=== PATIENT | male | born 1945 | race Two or more races ===

== ENCOUNTER 2019-11-05 16:05 | Emergency (ER) | payer OTHER ==
[~2019-11-05] VITALS: Ht 167.6 cm; Wt 83.5 kg
[2019-11-05] MEDS ORDERED: NEOMYCIN-BACITRACIN-POLYM 15GM TOP OINT TOP SCH (20:30)
[2019-11-05 20:33] VITALS: BP 146/75
== END 2019-11-05 20:48 | disposition home or self-care (01) ==
LOC: ER 16:05
DX: S51.812A Laceration without foreign body of left forearm, initial encounter (principal); E11.65 Type 2 diabetes mellitus with hyperglycemia; Z76.0 Encounter for issue of repeat prescription; X58.XXXA Exposure to other specified factors, initial encounter; Y93.89 Activity, other specified; Y92.89 Other specified places as the place of occurrence of the external cause; Y99.8 Other external cause status
CPT/HCPCS: 82962

== ENCOUNTER 2020-02-27 15:08 | Emergency (ER) | payer OTHER ==
[~2020-02-27] VITALS: Ht 167.6 cm; Wt 83.0 kg
[2020-02-27] MEDS ORDERED: SODIUM CHLORIDE 0.9% 1,000 ML IV ONE (15:45)
[2020-02-27 16:35] LABS: Basophils # (auto) 0 10 ^3/uL (0-0.2); Basophils % (auto) 0.4 % (0.0-2.0); Eosinophils # (auto) 0.1 10 ^3/uL (0-0.8); Eosinophils % (auto) 0.7 % (0.0-7.0); Hematocrit 44.1 % (41.0-53.0); Hemoglobin 15.1 g/dL (13.5-17.5); Lymphocytes # (auto) 0.9 10 ^3/uL (0.4-5.4); Lymphocytes % (auto) 8.4 % (10.0-50.0); Mean Corpuscular Hemoglobin 31.9 pg (28.0-32.0); Mean Corpuscular Hgb Conc. 34.3 g/dL (32.0-36.0); Monocytes # (auto) 0.8 10 ^3/uL (0-1.3); Monocytes % (auto) 7.9 % (0.0-12.0); Neutrophils # (auto) 8.7 10 ^3/uL (1.6-8.6); Neutrophils % (auto) 82.6 % (37.0-80.0); Platelet Count (auto) 143 10^3/uL (140-450); Red Blood Cells 4.75 10^6/uL (4.5-5.90); Red Cell Distribution Width 12.7 % (11.8-14.3); White Blood Cell 10.6 10^3/uL (4.4-10.8)
[2020-02-27 16:53] LABS: Albumin 3.5 g/dL (3.4-5.0); Anion Gap 7 (5-15); Blood Urea Nitrogen 21 mg/dL (7-18); Carbon Dioxide 27 mmol/L (21-32); Chloride 101 mmol/L (98-107); Glucose 316 mg/dL (74-106); Magnesium 2.1 mg/dL (1.6-2.6); Potassium 5.1 mmol/L (3.5-5.1); Sodium 135 mmol/L (136-145)
[2020-02-27 16:58] LABS: Alanine Aminotransferase 23 U/L (16-61); Alkaline Phosphatase 72 U/L (45-117); Aspartate Aminotransferase 13 U/L (15-37); BUN/Creatinine Ratio 12.2; Bilirubin, Total 0.8 mg/dL (0.2-1.0); GFR African American 50 mL/min; GFR Non-African American 42 mL/min; Total Protein 7.7 g/dL (6.4-8.2)
[2020-02-27 18:14] LABS: Urine Bacteria NONE SEEN /hpf (None Seen); Urine Blood Negative /uL (Negative); Urine Hyaline Cast MANY /lpf (0 - 2); Urine Mucus FEW (None Seen); Urine Specific Gravity 1.013 (1.001-1.035); Urine WBC 1 /hpf (0 - 3)
[2020-02-27 19:07] VITALS: BP 151/78
== END 2020-02-27 19:04 | disposition home or self-care (01) ==
LOC: ER 15:08 → EDBD 15:08 → ER 19:04
DX: T67.5XXA Heat exhaustion, unspecified, initial encounter (principal); E86.0 Dehydration; E11.9 Type 2 diabetes mellitus without complications; I10 Essential (primary) hypertension; X58.XXXA Exposure to other specified factors, initial encounter; Y93.89 Activity, other specified; Y92.89 Other specified places as the place of occurrence of the external cause; Y99.8 Other external cause status
CPT/HCPCS: 36415; 71045; 80053; 81001; 83735; 83880; 84484; 85025; 93005; 96360; 99285; J7030

== ENCOUNTER 2020-05-06 15:00 | Inpatient (IN) | payer OTHER ==
[~2020-05-06] VITALS: Ht 162.6 cm; Wt 71.1 kg
[2020-05-06] MEDS ORDERED: SODIUM CHLORIDE 0.9% 1,000 ML IV ONE (15:45)
[2020-05-06] MEDS ORDERED: InsuLIN REG 1unit/0.01ml Soln (100units/ml) IV ONE (15:45)
[2020-05-06 15:57] LABS: Basophils # (auto) 0 10 ^3/uL (0-0.2); Basophils % (auto) 0.3 % (0.0-2.0); Eosinophils # (auto) 0 10 ^3/uL (0-0.8); Eosinophils % (auto) 0.1 % (0.0-7.0); Hematocrit 46.6 % (41.0-53.0); Hemoglobin 16.5 g/dL (13.5-17.5); Lymphocytes # (auto) 0.7 10 ^3/uL (0.4-5.4); Lymphocytes % (auto) 8.5 % (10.0-50.0); Mean Corpuscular Hemoglobin 31.2 pg (28.0-32.0); Mean Corpuscular Hgb Conc. 35.4 g/dL (32.0-36.0); Mean Corpuscular Volume 88.4 fL (80.0-100.0); Monocytes # (auto) 0.5 10 ^3/uL (0-1.3); Monocytes % (auto) 6.8 % (0.0-12.0); Neutrophils # (auto) 6.5 10 ^3/uL (1.6-8.6); Neutrophils % (auto) 84.3 % (37.0-80.0); Nucleated Red Blood Cells % 0.1 %; Platelet Count (auto) 173 10^3/uL (140-450); Red Blood Cells 5.27 10^6/uL (4.5-5.90); Red Cell Distribution Width 12.3 % (11.8-14.3); White Blood Cell 7.7 10^3/uL (4.4-10.8)
[2020-05-06 16:00] LABS: INR 1.03 (0.9-1.15); Partial Thromboplastin Time 31.6 sec (23.0-31.2)
[2020-05-06 16:02] LABS: Albumin 2.7 g/dL (3.4-5.0); Anion Gap 11 (5-15); Blood Urea Nitrogen 22 mg/dL (7-18); Calcium 8.7 mg/dL (8.5-10.1); Carbon Dioxide 20 mmol/L (21-32); Chloride 101 mmol/L (98-107); Glucose 263 mg/dL (74-106); Potassium 4.3 mmol/L (3.5-5.1); Sodium 132 mmol/L (136-145)
[2020-05-06 16:07] LABS: Alanine Aminotransferase 25 U/L (16-61); Alkaline Phosphatase 115 U/L (45-117); Aspartate Aminotransferase 43 U/L (15-37); BUN/Creatinine Ratio 17.7; Bilirubin, Total 0.7 mg/dL (0.2-1.0); GFR African American 73 mL/min; GFR Non-African American 61 mL/min; Total Protein 8.1 g/dL (6.4-8.2)
[2020-05-06 16:31] LABS: Urine Bacteria NONE SEEN /hpf (None Seen); Urine Blood Negative /uL (Negative); Urine Specific Gravity 1.009 (1.001-1.035); Urine WBC 2 /hpf (0 - 3)
[2020-05-06] MEDS ORDERED: NITROGLYCERIN 0.4 MG SL TAB SL PRN (18:45)
[2020-05-06] MEDS ORDERED: MORPHINE SULF INJ 2 MG/ML SYRINGE 1ML IV PRN (18:45)
[2020-05-06] MEDS ORDERED: REMDESIVIR PER PHARMACY 0 ML IV SCH (19:30)
[2020-05-06] MEDS ORDERED: diphenhdrAMINE HCL 50 MG/1 ML VL IV PRN (19:30)
[2020-05-06] MEDS ORDERED: traMADol HCL 50 MG TAB PO PRN (19:45)
[2020-05-06] MEDS ORDERED: DEXTROSE (50%) 50ML SYRG IV PRN (19:45)
[2020-05-06] MEDS ORDERED: ONDANSETRON HCL 4 MG/2 ML VIAL IV PRN (19:45)
[2020-05-06] MEDS ORDERED: ACETAMINOPHEN 500 MG TAB PO PRN (19:45)
[2020-05-06] MEDS ORDERED: REMDESIVIR 200 MG in NS 210ml LOADING DOSE ADULT IV ONE ×2 (20:00→22:00)
[2020-05-06] MEDS: ACCU-CHEK COMFORT CURVE STRIP VI SCH (22:00)
[2020-05-06] MEDS: BUDESONIDE (INHALATION) 180 MCG IH IN SCH (22:00)
[2020-05-06] MEDS ORDERED: FAMOTIDINE (10MG/ML) 2ML VL IV SCH (22:00)
[2020-05-06 23:00] VITALS: BP 119/70
[2020-05-06] MEDS: InsuLIN REG 1unit/0.01ml Soln (100units/ml) SC SCH (23:27)
[2020-05-06] MEDS: ENOXAPARIN SOD 40 MG/0.4 ML SYRINGE SC SCH (23:33)
[2020-05-07 00:46] VITALS: BP 147/70
[2020-05-07] MEDS: InsuLIN REG 1unit/0.01ml Soln (100units/ml) SC SCH ×4 (06:34→22:37)
[2020-05-07] MEDS: ACCU-CHEK COMFORT CURVE STRIP VI SCH ×4 (06:34→22:00)
[2020-05-07 07:07] LABS: Basophils # (auto) 0 10 ^3/uL (0-0.2); Basophils % (auto) 0.2 % (0.0-2.0); Eosinophils # (auto) 0 10 ^3/uL (0-0.8); Eosinophils % (auto) 0.1 % (0.0-7.0); Hematocrit 42.3 % (41.0-53.0); Hemoglobin 15.3 g/dL (13.5-17.5); Lymphocytes # (auto) 0.7 10 ^3/uL (0.4-5.4); Lymphocytes % (auto) 7.6 % (10.0-50.0); Mean Corpuscular Hemoglobin 31.4 pg (28.0-32.0); Mean Corpuscular Hgb Conc. 36.2 g/dL (32.0-36.0); Mean Corpuscular Volume 86.9 fL (80.0-100.0); Monocytes # (auto) 0.7 10 ^3/uL (0-1.3); Monocytes % (auto) 7.4 % (0.0-12.0); Neutrophils # (auto) 7.7 10 ^3/uL (1.6-8.6); Neutrophils % (auto) 84.7 % (37.0-80.0); Nucleated Red Blood Cells % 0.2 %; Platelet Count (auto) 187 10^3/uL (140-450); Red Blood Cells 4.87 10^6/uL (4.5-5.90); Red Cell Distribution Width 12.6 % (11.8-14.3)
[2020-05-07 07:28] LABS: Albumin 2.5 g/dL (3.4-5.0); Calcium 8.3 mg/dL (8.5-10.1); Potassium 4.3 mmol/L (3.5-5.1)
[2020-05-07 07:33] LABS: BUN/Creatinine Ratio 17.4; Bilirubin, Total 0.6 mg/dL (0.2-1.0); Total Protein 7.6 g/dL (6.4-8.2)
[2020-05-07 08:00] VITALS: BP 152/82
[2020-05-07] MEDS: BUDESONIDE (INHALATION) 180 MCG IH IN SCH ×2 (10:00→20:30)
[2020-05-07] MEDS ORDERED: FAMOTIDINE (10MG/ML) 2ML VL IV SCH (10:00)
[2020-05-07] MEDS: levoFLOXacin 500MG 100 ML IV SCH (11:00)
[2020-05-07] MEDS: ZINC SULFATE 220mg CAP or TAB PO SCH (11:00)
[2020-05-07] MEDS: ENOXAPARIN SOD 40 MG/0.4 ML SYRINGE SC SCH ×2 (11:00→22:47)
[2020-05-07] MEDS: CHOLECALCIFEROL (VITD3) 2,000 UNIT CAP/TAB PO SCH (11:00)
[2020-05-07] MEDS: DexAMETHasone SOD PHOS 10MG/1ML VIAL INJ IV SCH (11:00)
[2020-05-07] MEDS: ASCORBIC ACID 1,000 MG TAB PO SCH (11:00)
[2020-05-07 13:00] VITALS: BP 133/76
[2020-05-07] MEDS: REMDESIVIR 100mg 100 MG in SODIUM CHL 0.9% 230 ML IV SCH (15:30)
[2020-05-07 16:00] VITALS: BP 114/78
[2020-05-07] MEDS: FAMOTIDINE (10MG/ML) 2ML VL IV SCH (22:47)
[2020-05-08] VITALS: BP 129/67
[2020-05-08] MEDS: InsuLIN REG 1unit/0.01ml Soln (100units/ml) SC SCH ×4 (06:29→22:43)
[2020-05-08] MEDS: ACCU-CHEK COMFORT CURVE STRIP VI SCH ×4 (06:30→22:24)
[2020-05-08 08:00] VITALS: BP 122/67
[2020-05-08] MEDS: ENOXAPARIN SOD 40 MG/0.4 ML SYRINGE SC SCH ×2 (10:00→22:24)
[2020-05-08] MEDS: ALBUTEROL SULF HFA 90MCG INH 200DOSE IN PRN ×2 (10:27→21:07)
[2020-05-08] MEDS: BUDESONIDE (INHALATION) 180 MCG IH IN SCH ×2 (10:27→19:17)
[2020-05-08] MEDS: ASCORBIC ACID 1,000 MG TAB PO SCH (11:16)
[2020-05-08] MEDS: FAMOTIDINE (10MG/ML) 2ML VL IV SCH ×2 (11:16→22:24)
[2020-05-08] MEDS: DexAMETHasone SOD PHOS 10MG/1ML VIAL INJ IV SCH (11:16)
[2020-05-08] MEDS: ZINC SULFATE 220mg CAP or TAB PO SCH (11:16)
[2020-05-08] MEDS: levoFLOXacin 500MG 100 ML IV SCH (11:16)
[2020-05-08] MEDS: CHOLECALCIFEROL (VITD3) 2,000 UNIT CAP/TAB PO SCH (11:16)
[2020-05-08] MEDS: REMDESIVIR 100mg 100 MG in SODIUM CHL 0.9% 230 ML IV SCH (15:45)
[2020-05-08 16:00] VITALS: BP 123/62
[2020-05-08 16:07] LABS: Potassium 4.6 mmol/L (3.5-5.1)
[2020-05-08 16:15] LABS: Albumin 2.3 g/dL (3.4-5.0); BUN/Creatinine Ratio 28.7; Bilirubin, Total 0.4 mg/dL (0.2-1.0); Calcium 8.1 mg/dL (8.5-10.1)
[2020-05-09] VITALS: BP 125/70
[2020-05-09] MEDS: ACCU-CHEK COMFORT CURVE STRIP VI SCH ×4 (06:44→22:00)
[2020-05-09] MEDS: InsuLIN REG 1unit/0.01ml Soln (100units/ml) SC SCH ×4 (06:44→22:00)
[2020-05-09] MEDS: BUDESONIDE (INHALATION) 180 MCG IH IN SCH ×2 (07:15→19:00)
[2020-05-09 08:00] VITALS: BP_SYST 114; BP_SYST 138; BP_DIAS 62; BP_DIAS 63
[2020-05-09] MEDS: ASCORBIC ACID 1,000 MG TAB PO SCH (10:30)
[2020-05-09] MEDS: ENOXAPARIN SOD 40 MG/0.4 ML SYRINGE SC SCH ×2 (10:30→22:01)
[2020-05-09] MEDS: levoFLOXacin 500MG 100 ML IV SCH (10:30)
[2020-05-09] MEDS: DexAMETHasone SOD PHOS 10MG/1ML VIAL INJ IV SCH (10:30)
[2020-05-09] MEDS: CHOLECALCIFEROL (VITD3) 2,000 UNIT CAP/TAB PO SCH (10:30)
[2020-05-09] MEDS: FAMOTIDINE (10MG/ML) 2ML VL IV SCH ×2 (10:30→22:00)
[2020-05-09] MEDS: ZINC SULFATE 220mg CAP or TAB PO SCH (10:30)
[2020-05-09 12:22] LABS: Anion Gap 7 (5-15); Carbon Dioxide 22 mmol/L (21-32); Chloride 106 mmol/L (98-107); Potassium 4.2 mmol/L (3.5-5.1); Sodium 135 mmol/L (136-145)
[2020-05-09 12:23] LABS: Alanine Aminotransferase 33 U/L (16-61); Albumin 2.4 g/dL (3.4-5.0); Alkaline Phosphatase 160 U/L (45-117); Aspartate Aminotransferase 54 U/L (15-37); BUN/Creatinine Ratio 32.6; Bilirubin, Total 0.5 mg/dL (0.2-1.0); Blood Urea Nitrogen 28 mg/dL (7-18); Calcium 8.3 mg/dL (8.5-10.1); GFR African American 112 mL/min; GFR Non-African American 92 mL/min; Glucose 175 mg/dL (74-106); Total Protein 7.3 g/dL (6.4-8.2)
[2020-05-09] MEDS: HALOPERIDOL LACTATE 5 MG/ML INJ VIAL IM PRN (15:45)
[2020-05-09] MEDS: REMDESIVIR 100mg 100 MG in SODIUM CHL 0.9% 230 ML IV SCH (15:45)
[2020-05-09 16:00] VITALS: BP 138/62
[2020-05-09] MEDS: ALBUTEROL SULF HFA 90MCG INH 200DOSE IN PRN (19:00)
[2020-05-10] VITALS: BP 158/79
[2020-05-10 06:38] LABS: Albumin 2.6 g/dL (3.4-5.0); Bilirubin, Total 0.6 mg/dL (0.2-1.0); Calcium 8.4 mg/dL (8.5-10.1); Total Protein 7.2 g/dL (6.4-8.2)
[2020-05-10] MEDS: ACCU-CHEK COMFORT CURVE STRIP VI SCH ×4 (06:52→22:03)
[2020-05-10] MEDS: InsuLIN REG 1unit/0.01ml Soln (100units/ml) SC SCH ×4 (06:52→22:03)
[2020-05-10] MEDS: BUDESONIDE (INHALATION) 180 MCG IH IN SCH ×3 (07:20→22:00)
[2020-05-10 08:00] VITALS: BP 138/80
[2020-05-10] MEDS: ZINC SULFATE 220mg CAP or TAB PO SCH (10:00)
[2020-05-10] MEDS: CHOLECALCIFEROL (VITD3) 2,000 UNIT CAP/TAB PO SCH (10:00)
[2020-05-10] MEDS: ASCORBIC ACID 1,000 MG TAB PO SCH (10:00)
[2020-05-10] MEDS: FAMOTIDINE (10MG/ML) 2ML VL IV SCH ×2 (10:53→22:03)
[2020-05-10] MEDS: levoFLOXacin 500MG 100 ML IV SCH (10:54)
[2020-05-10] MEDS: ENOXAPARIN SOD 40 MG/0.4 ML SYRINGE SC SCH ×2 (10:54→22:03)
[2020-05-10] MEDS: DexAMETHasone SOD PHOS 10MG/1ML VIAL INJ IV SCH (10:54)
[2020-05-10] MEDS: REMDESIVIR 100mg 100 MG in SODIUM CHL 0.9% 230 ML IV SCH (15:15)
[2020-05-10 16:00] VITALS: BP 136/85
[2020-05-10] MEDS: ALBUTEROL SULF HFA 90MCG INH 200DOSE IN PRN (19:07)
[2020-05-11] VITALS (9 sets, daily range): BP systolic 129–159; BP diastolic 67–102
[2020-05-11] MEDS: HALOPERIDOL LACTATE 5 MG/ML INJ VIAL IM PRN (00:05)
[2020-05-11] MEDS: TEMAZEPAM 15 MG CAP PO PRN ×2 (02:14→22:41)
[2020-05-11] MEDS: LORazepam 2MG/ML-1ML VIAL IV PRN ×4 (04:05→20:19)
[2020-05-11] MEDS: MORPHINE SULF INJ 2 MG/ML SYRINGE 1ML IV PRN ×2 (05:41→15:56)
[2020-05-11] MEDS: InsuLIN REG 1unit/0.01ml Soln (100units/ml) SC SCH ×4 (06:35→20:18)
[2020-05-11] MEDS: ACCU-CHEK COMFORT CURVE STRIP VI SCH ×4 (06:35→20:19)
[2020-05-11] MEDS: ZINC SULFATE 220mg CAP or TAB PO SCH (10:00)
[2020-05-11] MEDS: BUDESONIDE (INHALATION) 180 MCG IH IN SCH ×2 (10:00→19:21)
[2020-05-11] MEDS: CHOLECALCIFEROL (VITD3) 2,000 UNIT CAP/TAB PO SCH (10:00)
[2020-05-11] MEDS: ASCORBIC ACID 1,000 MG TAB PO SCH (10:00)
[2020-05-11] MEDS: FAMOTIDINE (10MG/ML) 2ML VL IV SCH ×2 (10:51→20:18)
[2020-05-11] MEDS: levoFLOXacin 500MG 100 ML IV SCH (10:52)
[2020-05-11] MEDS: DexAMETHasone SOD PHOS 10MG/1ML VIAL INJ IV SCH (10:52)
[2020-05-11] MEDS: ENOXAPARIN SOD 40 MG/0.4 ML SYRINGE SC SCH ×2 (10:55→20:19)
[2020-05-11] MEDS ORDERED: LIDOCAINE 2% JELLY 11ml (GLYDO) UR ONE (12:45)
[2020-05-12] VITALS: BP 130/95
[2020-05-12] MEDS: HALOPERIDOL LACTATE 5 MG/ML INJ VIAL IM PRN (03:20)
[2020-05-12] MEDS: LORazepam 2MG/ML-1ML VIAL IV PRN ×3 (05:43→22:53)
[2020-05-12] MEDS: ACCU-CHEK COMFORT CURVE STRIP VI SCH ×4 (05:44→22:00)
[2020-05-12] MEDS: InsuLIN REG 1unit/0.01ml Soln (100units/ml) SC SCH ×4 (05:44→22:52)
[2020-05-12 07:59] VITALS: BP 103/46
[2020-05-12] MEDS: BUDESONIDE (INHALATION) 180 MCG IH IN SCH ×2 (10:00→21:44)
[2020-05-12] MEDS: ZINC SULFATE 220mg CAP or TAB PO SCH (10:00)
[2020-05-12] MEDS: ASCORBIC ACID 1,000 MG TAB PO SCH (10:00)
[2020-05-12] MEDS: CHOLECALCIFEROL (VITD3) 2,000 UNIT CAP/TAB PO SCH (10:00)
[2020-05-12] MEDS: MORPHINE SULF INJ 2 MG/ML SYRINGE 1ML IV PRN ×2 (10:40→18:10)
[2020-05-12] MEDS: DexAMETHasone SOD PHOS 10MG/1ML VIAL INJ IV SCH (10:47)
[2020-05-12] MEDS: FAMOTIDINE (10MG/ML) 2ML VL IV SCH ×2 (10:48→22:52)
[2020-05-12] MEDS: levoFLOXacin 500MG 100 ML IV SCH (10:48)
[2020-05-12] MEDS: ENOXAPARIN SOD 40 MG/0.4 ML SYRINGE SC SCH ×2 (10:49→22:52)
[2020-05-12 13:59] LABS: Basophils # (auto) 0 10 ^3/uL (0-0.2); Eosinophils # (auto) 0 10 ^3/uL (0-0.8); Hematocrit 41.6 % (41.0-53.0); Hemoglobin 14.5 g/dL (13.5-17.5); Lymphocytes # (auto) 0.3 10 ^3/uL (0.4-5.4); Mean Corpuscular Hemoglobin 30.7 pg (28.0-32.0); Mean Corpuscular Hgb Conc. 34.8 g/dL (32.0-36.0); Mean Corpuscular Volume 88.2 fL (80.0-100.0); Monocytes # (auto) 0.6 10 ^3/uL (0-1.3); Monocytes % (auto) 3.9 % (0.0-12.0); Neutrophils # (auto) 13.9 10 ^3/uL (1.6-8.6); Neutrophils % (auto) 94.1 % (37.0-80.0); Platelet Count (auto) 149 10^3/uL (140-450); Red Blood Cells 4.71 10^6/uL (4.5-5.90); Red Cell Distribution Width 13.2 % (11.8-14.3); White Blood Cell 14.8 10^3/uL (4.4-10.8)
[2020-05-12 14:11] LABS: INR 1.23 (0.9-1.15); Partial Thromboplastin Time 28.6 sec (23.0-31.2)
[2020-05-12 16:25] VITALS: BP 157/83
[2020-05-13] VITALS: BP 156/86
[2020-05-13] MEDS: MORPHINE SULF INJ 2 MG/ML SYRINGE 1ML IV PRN ×3 (00:16→22:30)
[2020-05-13] MEDS ORDERED: ACETAMINOPHEN 650 MG RECT SUPP PR ONE (00:30)
[2020-05-13 06:51] LABS: Basophils # (auto) 0 10 ^3/uL (0-0.2); Basophils % (auto) 0.1 % (0.0-2.0); Eosinophils # (auto) 0 10 ^3/uL (0-0.8); Hematocrit 43.4 % (41.0-53.0); Hemoglobin 15.1 g/dL (13.5-17.5); Lymphocytes # (auto) 0.5 10 ^3/uL (0.4-5.4); Lymphocytes % (auto) 3.9 % (10.0-50.0); Mean Corpuscular Hemoglobin 30.7 pg (28.0-32.0); Mean Corpuscular Hgb Conc. 34.7 g/dL (32.0-36.0); Mean Corpuscular Volume 88.3 fL (80.0-100.0); Monocytes # (auto) 0.8 10 ^3/uL (0-1.3); Monocytes % (auto) 6.4 % (0.0-12.0); Neutrophils % (auto) 89.6 % (37.0-80.0); Nucleated Red Blood Cells % 0.1 %; Platelet Count (auto) 122 10^3/uL (140-450); Red Blood Cells 4.92 10^6/uL (4.5-5.90); White Blood Cell 12.2 10^3/uL (4.4-10.8)
[2020-05-13] MEDS: BUDESONIDE (INHALATION) 180 MCG IH IN SCH ×2 (06:55→21:26)
[2020-05-13] MEDS: InsuLIN REG 1unit/0.01ml Soln (100units/ml) SC SCH ×3 (06:56→17:39)
[2020-05-13] MEDS: ACCU-CHEK COMFORT CURVE STRIP VI SCH ×3 (06:56→17:40)
[2020-05-13 07:04] LABS: Potassium 3.6 mmol/L (3.5-5.1)
[2020-05-13 07:15] LABS: Albumin 2.5 g/dL (3.4-5.0); BUN/Creatinine Ratio 36.8; Bilirubin, Total 1.2 mg/dL (0.2-1.0); Calcium 8.6 mg/dL (8.5-10.1); Magnesium 2.8 mg/dL (1.6-2.6); Total Protein 7.3 g/dL (6.4-8.2)
[2020-05-13 08:00] VITALS: BP 149/93
[2020-05-13] MEDS: CHOLECALCIFEROL (VITD3) 2,000 UNIT CAP/TAB PO SCH (10:00)
[2020-05-13] MEDS: ASCORBIC ACID 1,000 MG TAB PO SCH (10:00)
[2020-05-13] MEDS: ZINC SULFATE 220mg CAP or TAB PO SCH (10:00)
[2020-05-13] MEDS: FAMOTIDINE (10MG/ML) 2ML VL IV SCH ×2 (10:53→22:33)
[2020-05-13] MEDS: DexAMETHasone SOD PHOS 10MG/1ML VIAL INJ IV SCH (10:53)
[2020-05-13] MEDS: ENOXAPARIN SOD 40 MG/0.4 ML SYRINGE SC SCH ×2 (10:54→22:33)
[2020-05-13] MEDS: levoFLOXacin 500MG 100 ML IV SCH (10:54)
[2020-05-13] MEDS: D5W 5% 1,000 ML IV SCH ×2 (14:21→23:50)
[2020-05-13] MEDS ORDERED: LIDOCAINE 1% (LOCAL ANESTH.) PF 5ml SDV ID ONE (15:45)
[2020-05-13 16:00] VITALS: BP 137/66
[2020-05-13] MEDS ORDERED: TPN PER PHARMACY 0 ML IV SCH (17:15)
[2020-05-13] MEDS ORDERED: DEXTROSE (50%) 50ML SYRG IV SCH (18:00)
[2020-05-13] MEDS ORDERED: AMINO ACID INFUSION IN D10W 1,000 ML IV NR (20:00)
[2020-05-13] MEDS: ALBUTEROL SULF HFA 90MCG INH 200DOSE IN PRN (21:26)
[2020-05-13] MEDS: SODIUM CHLOR 0.9% PF (SALINE LOCK) 10ML VIAL/SYR IV SCH (22:33)
[2020-05-14] VITALS: BP 134/73
[2020-05-14] MEDS: InsuLIN REG 1unit/0.01ml Soln (100units/ml) SC SCH ×4 (00:52→17:46)
[2020-05-14] MEDS: ACCU-CHEK COMFORT CURVE STRIP VI SCH ×4 (06:20→17:38)
[2020-05-14 07:11] LABS: Basophils # (auto) 0 10 ^3/uL (0-0.2); Basophils % (auto) 0.4 % (0.0-2.0); Eosinophils # (auto) 0 10 ^3/uL (0-0.8); Hematocrit 45.9 % (41.0-53.0); Hemoglobin 15.7 g/dL (13.5-17.5); Lymphocytes # (auto) 0.5 10 ^3/uL (0.4-5.4); Lymphocytes % (auto) 3.8 % (10.0-50.0); Mean Corpuscular Hemoglobin 30.5 pg (28.0-32.0); Mean Corpuscular Hgb Conc. 34.2 g/dL (32.0-36.0); Mean Corpuscular Volume 89.2 fL (80.0-100.0); Monocytes # (auto) 0.6 10 ^3/uL (0-1.3); Neutrophils # (auto) 11.1 10 ^3/uL (1.6-8.6); Neutrophils % (auto) 90.8 % (37.0-80.0); Nucleated Red Blood Cells % 0.1 %; Platelet Count (auto) 89 10^3/uL (140-450); Red Blood Cells 5.14 10^6/uL (4.5-5.90); Red Cell Distribution Width 13.2 % (11.8-14.3); White Blood Cell 12.2 10^3/uL (4.4-10.8)
[2020-05-14 07:30] LABS: Calcium 8.7 mg/dL (8.5-10.1); Potassium 3.6 mmol/L (3.5-5.1)
[2020-05-14 07:38] LABS: Albumin 2.4 g/dL (3.4-5.0); Bilirubin, Total 0.9 mg/dL (0.2-1.0); Magnesium 2.7 mg/dL (1.6-2.6); Phosphorus 2.8 mg/dL (2.5-4.90); Pre Albumin 7.6 mg/dL (20.0-40.0)
[2020-05-14 08:00] VITALS: BP 142/73
[2020-05-14] MEDS: ZINC SULFATE 220mg CAP or TAB PO SCH (09:39)
[2020-05-14] MEDS: CHOLECALCIFEROL (VITD3) 2,000 UNIT CAP/TAB PO SCH (09:40)
[2020-05-14] MEDS: ASCORBIC ACID 1,000 MG TAB PO SCH (09:40)
[2020-05-14] MEDS: levoFLOXacin 500MG 100 ML IV SCH (09:46)
[2020-05-14] MEDS: ENOXAPARIN SOD 40 MG/0.4 ML SYRINGE SC SCH ×2 (09:47→21:31)
[2020-05-14] MEDS: FAMOTIDINE (10MG/ML) 2ML VL IV SCH ×2 (09:47→21:31)
[2020-05-14] MEDS: SODIUM CHLOR 0.9% PF (SALINE LOCK) 10ML VIAL/SYR IV SCH ×2 (09:47→21:31)
[2020-05-14] MEDS: DexAMETHasone SOD PHOS 10MG/1ML VIAL INJ IV SCH (09:48)
[2020-05-14] MEDS: BUDESONIDE (INHALATION) 180 MCG IH IN SCH ×2 (10:00→19:57)
[2020-05-14] MEDS: D5W 5% 1,000 ML IV SCH (13:10)
[2020-05-14 16:06] VITALS: BP 120/70
[2020-05-14] MEDS ORDERED: TPN PER PHARMACY IV NR ×8 (20:00)
[2020-05-15] VITALS: BP 124/69
[2020-05-15] MEDS: InsuLIN REG 1unit/0.01ml Soln (100units/ml) SC SCH ×5 (00:20→23:59)
[2020-05-15] MEDS: ACCU-CHEK COMFORT CURVE STRIP VI SCH ×5 (00:20→23:59)
[2020-05-15] MEDS: D5W 5% 1,000 ML IV SCH ×2 (02:30→11:06)
[2020-05-15] MEDS: BUDESONIDE (INHALATION) 180 MCG IH IN SCH ×2 (06:09→19:46)
[2020-05-15 08:00] VITALS: BP 111/82
[2020-05-15 09:04] LABS: Calcium 8.5 mg/dL (8.5-10.1); Magnesium 2.7 mg/dL (1.6-2.6); Potassium 3.3 mmol/L (3.5-5.1)
[2020-05-15 09:20] LABS: Albumin 2.3 g/dL (3.4-5.0); BUN/Creatinine Ratio 44.2; Bilirubin, Total 0.9 mg/dL (0.2-1.0); CRP High Sensitivity 1.79 mg/dL (< 0.3); Phosphorus 3.5 mg/dL (2.5-4.90); Total Protein 7.2 g/dL (6.4-8.2)
[2020-05-15] MEDS: ZINC SULFATE 220mg CAP or TAB PO SCH (10:00)
[2020-05-15] MEDS: ASCORBIC ACID 1,000 MG TAB PO SCH (10:00)
[2020-05-15] MEDS: CHOLECALCIFEROL (VITD3) 2,000 UNIT CAP/TAB PO SCH (10:00)
[2020-05-15] MEDS: DexAMETHasone SOD PHOS 10MG/1ML VIAL INJ IV SCH (11:04)
[2020-05-15] MEDS: FAMOTIDINE (10MG/ML) 2ML VL IV SCH ×2 (11:05→22:32)
[2020-05-15] MEDS: ENOXAPARIN SOD 40 MG/0.4 ML SYRINGE SC SCH (11:05)
[2020-05-15] MEDS: SODIUM CHLOR 0.9% PF (SALINE LOCK) 10ML VIAL/SYR IV SCH ×2 (11:05→22:32)
[2020-05-15] MEDS: levoFLOXacin 500MG 100 ML IV SCH (11:05)
[2020-05-15] MEDS ORDERED: POTASSIUM CHL 20MEQ/100ML 100 ML IV ONE (11:30)
[2020-05-15 13:06] LABS: Basophils # (auto) 0.1 10 ^3/uL (0-0.2); Basophils % (auto) 0.8 % (0.0-2.0); Eosinophils # (auto) 0 10 ^3/uL (0-0.8); Eosinophils % (auto) 0.2 % (0.0-7.0); Hematocrit 49.8 % (41.0-53.0); Hemoglobin 16.5 g/dL (13.5-17.5); Lymphocytes # (auto) 1.1 10 ^3/uL (0.4-5.4); Lymphocytes % (auto) 6.5 % (10.0-50.0); Mean Corpuscular Hgb Conc. 33.1 g/dL (32.0-36.0); Mean Corpuscular Volume 90.4 fL (80.0-100.0); Monocytes # (auto) 0.5 10 ^3/uL (0-1.3); Monocytes % (auto) 3.2 % (0.0-12.0); Neutrophils # (auto) 14.7 10 ^3/uL (1.6-8.6); Neutrophils % (auto) 89.3 % (37.0-80.0); Platelet Count (auto) 75 10^3/uL (140-450); Red Cell Distribution Width 13.3 % (11.8-14.3); White Blood Cell 16.5 10^3/uL (4.4-10.8)
[2020-05-15 14:10] VITALS: BP 111/82
[2020-05-15 15:47] VITALS: BP 116/83
[2020-05-15 19:47] VITALS: BP 125/72
[2020-05-15] MEDS: ALBUTEROL SULF HFA 90MCG INH 200DOSE IN PRN (19:47)
[2020-05-15] MEDS ORDERED: TPN PER PHARMACY IV NR ×6 (20:00)
[2020-05-15] MEDS: ENOXAPARIN SOD 80 MG/0.8ML SYRINGE SC SCH (22:32)
[2020-05-16] VITALS: BP 125/72
[2020-05-16] MEDS: D5W 5% 1,000 ML IV SCH ×2 (05:15→18:30)
[2020-05-16] MEDS: ACCU-CHEK COMFORT CURVE STRIP VI SCH ×3 (05:51→12:17)
[2020-05-16] MEDS: InsuLIN REG 1unit/0.01ml Soln (100units/ml) SC SCH ×3 (05:52→17:23)
[2020-05-16 08:00] VITALS: BP 113/67
[2020-05-16 08:29] LABS: Basophils # (auto) 0 10 ^3/uL (0-0.2); Eosinophils # (auto) 0.1 10 ^3/uL (0-0.8); Eosinophils % (auto) 0.5 % (0.0-7.0); Lymphocytes % (auto) 5.7 % (10.0-50.0); Mean Corpuscular Volume 91.2 fL (80.0-100.0)
[2020-05-16 08:32] LABS: Basophils % (auto) 0.2 % (0.0-2.0); Hematocrit 48.7 % (41.0-53.0); Hemoglobin 16.4 g/dL (13.5-17.5); Mean Corpuscular Hemoglobin 30.7 pg (28.0-32.0); Mean Corpuscular Hgb Conc. 33.7 g/dL (32.0-36.0); Monocytes # (auto) 0.4 10 ^3/uL (0-1.3); Monocytes % (auto) 2.5 % (0.0-12.0); Neutrophils # (auto) 15.6 10 ^3/uL (1.6-8.6); Neutrophils % (auto) 91.1 % (37.0-80.0); Platelet Count (auto) 57 10^3/uL (140-450); Red Blood Cells 5.34 10^6/uL (4.5-5.90); Red Cell Distribution Width 13.3 % (11.8-14.3); White Blood Cell 17.1 10^3/uL (4.4-10.8)
[2020-05-16 08:46] LABS: Calcium 7.9 mg/dL (8.5-10.1); Magnesium 2.6 mg/dL (1.6-2.6); Potassium 3.3 mmol/L (3.5-5.1)
[2020-05-16 08:49] LABS: BUN/Creatinine Ratio 38.8; Bilirubin, Total 0.9 mg/dL (0.2-1.0); Phosphorus 3.5 mg/dL (2.5-4.90); Total Protein 6.7 g/dL (6.4-8.2)
[2020-05-16] MEDS: BUDESONIDE (INHALATION) 180 MCG IH IN SCH ×2 (10:00→19:49)
[2020-05-16] MEDS: FAMOTIDINE (10MG/ML) 2ML VL IV SCH ×2 (10:43→23:00)
[2020-05-16] MEDS: levoFLOXacin 500MG 100 ML IV SCH (10:43)
[2020-05-16] MEDS: DexAMETHasone SOD PHOS 10MG/1ML VIAL INJ IV SCH (10:43)
[2020-05-16] MEDS: ZINC SULFATE 220mg CAP or TAB PO SCH (10:44)
[2020-05-16] MEDS: ASCORBIC ACID 1,000 MG TAB PO SCH (10:44)
[2020-05-16] MEDS: SODIUM CHLOR 0.9% PF (SALINE LOCK) 10ML VIAL/SYR IV SCH ×2 (10:44→23:00)
[2020-05-16] MEDS: CHOLECALCIFEROL (VITD3) 2,000 UNIT CAP/TAB PO SCH (10:45)
[2020-05-16] MEDS: ENOXAPARIN SOD 80 MG/0.8ML SYRINGE SC SCH ×2 (10:45→23:00)
[2020-05-16] MEDS ORDERED: POTASSIUM CHL 20MEQ/100ML 100 ML IV ONE (11:00)
[2020-05-16 16:00] VITALS: BP 108/62
[2020-05-16 19:49] VITALS: BP 108/62
[2020-05-16] MEDS: ALBUTEROL SULF HFA 90MCG INH 200DOSE IN PRN (19:49)
[2020-05-16] MEDS ORDERED: TPN PER PHARMACY IV NR ×8 (20:00)
[2020-05-17] VITALS: BP 110/64
[2020-05-17] MEDS: InsuLIN REG 1unit/0.01ml Soln (100units/ml) SC SCH ×4 (00:25→18:21)
[2020-05-17] MEDS: ACCU-CHEK COMFORT CURVE STRIP VI SCH ×4 (05:40→18:21)
[2020-05-17 06:26] LABS: Basophils # (auto) 0 10 ^3/uL (0-0.2); Basophils % (auto) 0.2 % (0.0-2.0); Eosinophils # (auto) 0 10 ^3/uL (0-0.8); Eosinophils % (auto) 0.4 % (0.0-7.0); Hematocrit 47.3 % (41.0-53.0); Hemoglobin 16.2 g/dL (13.5-17.5); Lymphocytes # (auto) 0.9 10 ^3/uL (0.4-5.4); Lymphocytes % (auto) 6.9 % (10.0-50.0); Mean Corpuscular Hemoglobin 30.9 pg (28.0-32.0); Mean Corpuscular Hgb Conc. 34.3 g/dL (32.0-36.0); Mean Corpuscular Volume 90.1 fL (80.0-100.0); Monocytes # (auto) 0.5 10 ^3/uL (0-1.3); Monocytes % (auto) 3.9 % (0.0-12.0); Neutrophils # (auto) 12.3 10 ^3/uL (1.6-8.6); Neutrophils % (auto) 88.6 % (37.0-80.0); Nucleated Red Blood Cells % 0.1 %; Platelet Count (auto) 49 10^3/uL (140-450); Red Blood Cells 5.25 10^6/uL (4.5-5.90); Red Cell Distribution Width 13.2 % (11.8-14.3); White Blood Cell 13.8 10^3/uL (4.4-10.8)
[2020-05-17 06:43] LABS: Potassium 3.5 mmol/L (3.5-5.1)
[2020-05-17 06:51] LABS: Albumin 1.9 g/dL (3.4-5.0); BUN/Creatinine Ratio 44.5; Calcium 7.6 mg/dL (8.5-10.1); Magnesium 2.6 mg/dL (1.6-2.6); Phosphorus 3.1 mg/dL (2.5-4.90); Total Protein 6.4 g/dL (6.4-8.2)
[2020-05-17] MEDS: D5W 5% 1,000 ML IV SCH ×2 (07:50→21:37)
[2020-05-17 08:00] VITALS: BP 121/66
[2020-05-17] MEDS: CHOLECALCIFEROL (VITD3) 2,000 UNIT CAP/TAB PO SCH (10:00)
[2020-05-17] MEDS: ENOXAPARIN SOD 80 MG/0.8ML SYRINGE SC SCH (10:00)
[2020-05-17] MEDS: ASCORBIC ACID 1,000 MG TAB PO SCH (10:00)
[2020-05-17] MEDS: ZINC SULFATE 220mg CAP or TAB PO SCH (10:00)
[2020-05-17] MEDS: DexAMETHasone SOD PHOS 10MG/1ML VIAL INJ IV SCH (10:00)
[2020-05-17] MEDS: SODIUM CHLOR 0.9% PF (SALINE LOCK) 10ML VIAL/SYR IV SCH ×2 (10:01→22:20)
[2020-05-17] MEDS: levoFLOXacin 500MG 100 ML IV SCH (10:01)
[2020-05-17] MEDS: FAMOTIDINE (10MG/ML) 2ML VL IV SCH ×2 (10:01→21:27)
[2020-05-17] MEDS: ALBUTEROL SULF HFA 90MCG INH 200DOSE IN PRN ×2 (10:20→18:30)
[2020-05-17] MEDS: BUDESONIDE (INHALATION) 180 MCG IH IN SCH ×2 (10:20→18:30)
[2020-05-17] MEDS ORDERED: POTASSIUM CHL 20MEQ/100ML 100 ML IV ONE (10:45)
[2020-05-17 16:00] VITALS: BP 114/70
[2020-05-17 16:41] VITALS: BP 114/70
[2020-05-17] MEDS: TPN PER PHARMACY IV NR ×10 (19:48)
[2020-05-18] VITALS: BP 118/68
[2020-05-18] MEDS: ACCU-CHEK COMFORT CURVE STRIP VI SCH ×5 (00:18→23:53)
[2020-05-18] MEDS: InsuLIN REG 1unit/0.01ml Soln (100units/ml) SC SCH ×5 (00:25→23:54)
[2020-05-18 06:20] LABS: Potassium 3.9 mmol/L (3.5-5.1)
[2020-05-18 06:30] LABS: Albumin 1.8 g/dL (3.4-5.0); BUN/Creatinine Ratio 42.4; Bilirubin, Total 1.2 mg/dL (0.2-1.0); Calcium 7.4 mg/dL (8.5-10.1); Magnesium 2.3 mg/dL (1.6-2.6); Phosphorus 2.4 mg/dL (2.5-4.90); Total Protein 6.2 g/dL (6.4-8.2)
[2020-05-18] MEDS: BUDESONIDE (INHALATION) 180 MCG IH IN SCH ×2 (06:50→20:04)
[2020-05-18 08:00] VITALS: BP 112/66
[2020-05-18] MEDS: SODIUM CHLOR 0.9% PF (SALINE LOCK) 10ML VIAL/SYR IV SCH ×2 (10:08→21:26)
[2020-05-18] MEDS: FAMOTIDINE (10MG/ML) 2ML VL IV SCH ×2 (10:08→21:26)
[2020-05-18] MEDS: D5W 5% 1,000 ML IV SCH (10:09)
[2020-05-18] MEDS ORDERED: SODIUM PHOSP 20MEQ(15MMOL) IN NS 100 ML IV ONE (13:00)
[2020-05-18 16:00] VITALS: BP 117/68
[2020-05-18] MEDS: TPN PER PHARMACY IV NR ×10 (19:38)
[2020-05-18] MEDS ORDERED: TPN PER PHARMACY IV NR ×7 (20:00)
[2020-05-18] MEDS: ALBUTEROL SULF HFA 90MCG INH 200DOSE IN PRN (20:04)
[2020-05-18] MEDS: INSULIN LANTUS (GLARGINE) 1 /0.01ml (100units/ml) SC SCH (21:31)
[2020-05-18 23:34] VITALS: BP 109/73
[2020-05-19] MEDS: D5W 5% 1,000 ML IV SCH ×2 (00:11→17:34)
[2020-05-19] MEDS: ACCU-CHEK COMFORT CURVE STRIP VI SCH ×4 (05:55→23:47)
[2020-05-19] MEDS: InsuLIN REG 1unit/0.01ml Soln (100units/ml) SC SCH ×4 (06:03→23:50)
[2020-05-19 06:32] LABS: Basophils # (auto) 0 10 ^3/uL (0-0.2); Eosinophils # (auto) 0.2 10 ^3/uL (0-0.8); Hemoglobin 14.9 g/dL (13.5-17.5); Lymphocytes # (auto) 0.7 10 ^3/uL (0.4-5.4); Mean Corpuscular Volume 88.8 fL (80.0-100.0); Monocytes % (auto) 2.7 % (0.0-12.0); Red Cell Distribution Width 12.7 % (11.8-14.3)
[2020-05-19 06:38] LABS: Basophils % (auto) 0.2 % (0.0-2.0); Eosinophils % (auto) 0.9 % (0.0-7.0); Hematocrit 43.4 % (41.0-53.0); Lymphocytes % (auto) 4.2 % (10.0-50.0); Mean Corpuscular Hemoglobin 30.5 pg (28.0-32.0); Mean Corpuscular Hgb Conc. 34.3 g/dL (32.0-36.0); Monocytes # (auto) 0.5 10 ^3/uL (0-1.3); Neutrophils # (auto) 15.4 10 ^3/uL (1.6-8.6); Platelet Count (auto) 44 10^3/uL (140-450); Red Blood Cells 4.89 10^6/uL (4.5-5.90); White Blood Cell 16.7 10^3/uL (4.4-10.8)
[2020-05-19] MEDS: ALBUTEROL SULF HFA 90MCG INH 200DOSE IN PRN (06:44)
[2020-05-19] MEDS: BUDESONIDE (INHALATION) 180 MCG IH IN SCH ×2 (06:44→19:17)
[2020-05-19 06:57] LABS: Potassium 3.7 mmol/L (3.5-5.1)
[2020-05-19 07:16] LABS: Albumin 1.6 g/dL (3.4-5.0); BUN/Creatinine Ratio 36.9; Bilirubin, Total 1.9 mg/dL (0.2-1.0); Calcium 7.4 mg/dL (8.5-10.1); Magnesium 2.4 mg/dL (1.6-2.6); Phosphorus 2.7 mg/dL (2.5-4.90); Total Protein 5.8 g/dL (6.4-8.2)
[2020-05-19 08:00] VITALS: BP 103/61
[2020-05-19] MEDS: FAMOTIDINE (10MG/ML) 2ML VL IV SCH ×2 (10:03→22:00)
[2020-05-19] MEDS: INSULIN LANTUS (GLARGINE) 1 /0.01ml (100units/ml) SC SCH ×2 (10:04→22:02)
[2020-05-19] MEDS: SODIUM CHLOR 0.9% PF (SALINE LOCK) 10ML VIAL/SYR IV SCH ×2 (10:04→22:00)
[2020-05-19 15:44] VITALS: BP 108/59
[2020-05-19] MEDS: LORazepam 2MG/ML-1ML VIAL IV PRN ×2 (18:50→22:58)
[2020-05-19] MEDS ORDERED: TPN PER PHARMACY IV NR ×9 (20:00)
[2020-05-20] VITALS: BP 130/85
[2020-05-20] MEDS: D5W 5% 1,000 ML IV SCH ×2 (02:55→16:06)
[2020-05-20] MEDS: LORazepam 2MG/ML-1ML VIAL IV PRN ×4 (03:59→20:23)
[2020-05-20] MEDS: ACCU-CHEK COMFORT CURVE STRIP VI SCH ×4 (05:28→23:49)
[2020-05-20] MEDS: InsuLIN REG 1unit/0.01ml Soln (100units/ml) SC SCH ×4 (05:38→23:54)
[2020-05-20] MEDS: BUDESONIDE (INHALATION) 180 MCG IH IN SCH ×2 (06:00→20:16)
[2020-05-20 08:00] VITALS: BP 118/66
[2020-05-20] MEDS: FAMOTIDINE (10MG/ML) 2ML VL IV SCH ×2 (09:52→21:59)
[2020-05-20] MEDS: SODIUM CHLOR 0.9% PF (SALINE LOCK) 10ML VIAL/SYR IV SCH ×2 (09:52→21:55)
[2020-05-20] MEDS: INSULIN LANTUS (GLARGINE) 1 /0.01ml (100units/ml) SC SCH ×2 (09:54→22:00)
[2020-05-20 11:10] LABS: Albumin 1.5 g/dL (3.4-5.0); Calcium 7.5 mg/dL (8.5-10.1); Magnesium 2.3 mg/dL (1.6-2.6); Potassium 4.4 mmol/L (3.5-5.1)
[2020-05-20 11:14] LABS: BUN/Creatinine Ratio 41.5; Bilirubin, Total 3.2 mg/dL (0.2-1.0); Phosphorus 2.9 mg/dL (2.5-4.90); Total Protein 5.9 g/dL (6.4-8.2)
[2020-05-20] MEDS: MORPHINE SULF INJ 2 MG/ML SYRINGE 1ML IV PRN ×2 (12:21→16:50)
[2020-05-20 16:00] VITALS: BP 106/61
[2020-05-20] MEDS ORDERED: TPN PER PHARMACY IV NR ×9 (20:00)
[2020-05-21] VITALS: BP 111/63
[2020-05-21] MEDS: MORPHINE SULF INJ 2 MG/ML SYRINGE 1ML IV PRN ×4 (00:02→18:42)
[2020-05-21] MEDS: LORazepam 2MG/ML-1ML VIAL IV PRN ×2 (03:17→10:10)
[2020-05-21] MEDS: D5W 5% 1,000 ML IV SCH (05:09)
[2020-05-21] MEDS: ACCU-CHEK COMFORT CURVE STRIP VI SCH ×3 (05:34→17:17)
[2020-05-21] MEDS: InsuLIN REG 1unit/0.01ml Soln (100units/ml) SC SCH ×3 (05:46→17:16)
[2020-05-21 06:06] LABS: Potassium 3.9 mmol/L (3.5-5.1)
[2020-05-21 06:19] LABS: Albumin 1.3 g/dL (3.4-5.0); BUN/Creatinine Ratio 51.7; Bilirubin, Total 1.9 mg/dL (0.2-1.0); Calcium 7.3 mg/dL (8.5-10.1); Magnesium 2.3 mg/dL (1.6-2.6); Total Protein 5.5 g/dL (6.4-8.2)
[2020-05-21] MEDS: BUDESONIDE (INHALATION) 180 MCG IH IN SCH ×2 (06:30→18:25)
[2020-05-21 07:58] VITALS: BP 112/68
[2020-05-21] MEDS: FAMOTIDINE (10MG/ML) 2ML VL IV SCH ×2 (09:27→22:00)
[2020-05-21] MEDS: INSULIN LANTUS (GLARGINE) 1 /0.01ml (100units/ml) SC SCH (09:29)
[2020-05-21] MEDS: SODIUM CHLOR 0.9% PF (SALINE LOCK) 10ML VIAL/SYR IV SCH ×2 (09:29→22:00)
[2020-05-21] MEDS ORDERED: LORazepam 2MG/ML-1ML VIAL IV PRN (13:45)
[2020-05-21] MEDS ORDERED: HALOPERIDOL LACTATE 5 MG/ML INJ VIAL IM PRN (13:45)
[2020-05-21 15:45] VITALS: BP 85/61
[2020-05-21] MEDS ORDERED: SODIUM ACETATE IV NR ×13 (20:00)
[2020-05-21] MEDS ORDERED: SODIUM PHOSPHATES IV NR ×13 (20:00)
[2020-05-21] MEDS ORDERED: [UNRECOGNIZED DRUG - OTHER] IV NR ×13 (20:00)
[2020-05-21] MEDS ORDERED: SODIUM CHLORIDE IV NR ×13 (20:00)
[2020-05-22] MEDS: InsuLIN REG 1unit/0.01ml Soln (100units/ml) SC SCH
[2020-05-22] MEDS: ACCU-CHEK COMFORT CURVE STRIP VI SCH
== END 2020-05-21 21:30 | DRG 177 ==
LOC: ER 15:00 → EDBD 15:00 → TELE 15:01 → TELE-EAST 21:14 → TELE-E-ADS 05-07 05:38 → TELE-EAST 05-21 21:30 → UNDODISIN 05-22 02:15
PROVIDERS: ADMIT Internal Medicine; ATTEND Internal Medicine Geriatric Medicine
PROC: XW033E5 Introduction of Remdesivir Anti-infective into Peripheral Vein, Percutaneous Approach, New Technology Group 5 (ICD-10-PCS; 2020-05-06)
PROC: XW13325 Transfusion of Convalescent Plasma (Nonautologous) into Peripheral Vein, Percutaneous Approach, New Technology Group 5 (ICD-10-PCS; principal; 2020-05-11)
PROC: 5A0955A Assistance with Respiratory Ventilation, Greater than 96 Consecutive Hours, High Flow/Velocity Cannula (ICD-10-PCS; 2020-05-11)
PROC: 02HV33Z Insertion of Infusion Device into Superior Vena Cava, Percutaneous Approach (ICD-10-PCS; 2020-05-13)
PROC: 5A09457 Assistance with Respiratory Ventilation, 24-96 Consecutive Hours, Continuous Positive Airway Pressure (ICD-10-PCS; 2020-05-19)
DX: U07.1 COVID-19 (principal); J12.82 Pneumonia due to coronavirus disease 2019; J96.01 Acute respiratory failure with hypoxia; E87.1 Hypo-osmolality and hyponatremia; E87.0 Hyperosmolality and hypernatremia; E87.3 Alkalosis; I82.432 Acute embolism and thrombosis of left popliteal vein; Z51.5 Encounter for palliative care; Z66 Do not resuscitate; E11.65 Type 2 diabetes mellitus with hyperglycemia; E66.3 Overweight; I10 Essential (primary) hypertension; E86.0 Dehydration; R32 Unspecified urinary incontinence; Z68.26 Body mass index [BMI] 26.0-26.9, adult; D69.6 Thrombocytopenia, unspecified; R79.89 Other specified abnormal findings of blood chemistry; G30.9 Alzheimer's disease, unspecified; F02.80 Dementia in other diseases classified elsewhere, unspecified severity, without behavioral disturbance, psychotic disturbance, mood disturbance, and anxiety
CPT/HCPCS: 36415; 36569; 36600; 71045; 80053; 81001; 82040; 82728; 82805; 82962; 83036; 83615; 83735; 83880; 84100; 84478; 84484; 85025; 85379; 85610; 85730; 86141; 86850; 86900; 86901; 87426; 93005; 93970; 94640; 94660; 96361; 96374; G0378; J1100; J1815; J1956; J2405; J3480; J3490; J7131